=== PATIENT | female | born 1990 | race Caucasian/White ===

== ENCOUNTER 2018-07-27 16:52 | Inpatient (IN) | payer OTHER, MEDICAID ==
[2018-07-27] MEDS ORDERED: LACTATED RINGER'S 1,000 ML IV (17:27)
[2018-07-27] MEDS ORDERED: OXYTOCIN 30 UNITS/LR 500 ML IV (17:30)
[2018-07-27] MEDS ORDERED: BUTORPHANOL 2 MG INJ IV ×2 (17:30)
[2018-07-27] MEDS ORDERED: CARBOPROST 250 MCG INJ IM (17:30)
[2018-07-27] MEDS ORDERED: METHYLERGONOVINE 0.2 MG INJ IM (17:30)
[2018-07-27] MEDS ORDERED: MISOPROSTOL 200 MCG TAB PR (17:30)
[2018-07-27] MEDS ORDERED: AMPICILLIN 2 GM/NS (PMX) 100 ML IV (17:30)
[2018-07-27 18:13] LABS: ADD MAN DIFF? NO
[2018-07-27 18:17] LABS: BASOPHILS % 0.3 % (0.0-2.0); EOSINOPHILS # 0.1 10^3/ul (0.0-0.5); EOSINOPHILS % 0.6 % (0.0-7.0); HEMATOCRIT 35.9 % (37.0-47.0); HEMOGLOBIN 11.9 g/dl (12.0-16.0); LYMPHOCYTES # 1.6 10^3/ul (0.8-2.9); LYMPHOCYTES % 12.1 % (15.0-51.0); MEAN CORPUSCULAR HEMOGLOBIN 27.7 pg (29.0-33.0); MEAN CORPUSCULAR HGB CONC 33.1 g/dl (32.0-37.0); MEAN CORPUSCULAR VOLUME 83.7 fl (82.0-101.0); MEAN PLATELET VOLUME 11.4 fl (7.4-10.4); MONOCYTES % 7.6 % (0.0-11.0); NEUTROPHIL # 10.2 10^3/ul (1.6-7.5); NEUTROPHILS % 78.1 % (39.0-77.0); PLATELET COUNT 215 10^3/UL (140-415); RED BLOOD COUNT 4.29 10^6/ul (4.20-5.40); RED CELL DISTRIBUTION WIDTH 13.7 % (11.5-14.5)
[2018-07-27 18:37] LABS: INR 0.91; PROTIME 12.4 Sec (11.9-14.9)
[2018-07-27 18:38] LABS: PARTIAL THROMBOPLASTIN TIME 29.4 Sec (23.0-35.0)
[2018-07-27] MEDS: OXYTOCIN 30 UNITS/LR 500 ML IV (18:54)
[2018-07-27 19:13] LABS: HEPATITIS B SURFACE ANTIGEN NEGATIVE (NEGATIVE)
[2018-07-27] MEDS: LACTATED RINGER'S 1,000 ML IV ×2 (21:04→22:48)
[2018-07-27] MEDS ORDERED: AMPICILLIN 1 GM/NS (PMX) 50 ML IV (21:30)
[2018-07-27] MEDS ORDERED: NALOXONE (0.4 MG/ML) INJ IV (22:00)
[2018-07-28] MEDS: DEXTROSE 5%-LR 1,000 ML IV (00:42)
[2018-07-28 00:52] LABS: ADD MAN DIFF? NO
[2018-07-28 00:54] LABS: WHITE BLOOD COUNT 19.5 10^3/ul (4.8-10.8)
[2018-07-28 00:54] LABS: BASOPHILS % 0.2 % (0.0-2.0); EOSINOPHILS % 0.1 % (0.0-7.0); HEMATOCRIT 33.6 % (37.0-47.0); HEMOGLOBIN 10.9 g/dl (12.0-16.0); LYMPHOCYTES # 1.3 10^3/ul (0.8-2.9); LYMPHOCYTES % 6.8 % (15.0-51.0); MEAN CORPUSCULAR HEMOGLOBIN 27.5 pg (29.0-33.0); MEAN CORPUSCULAR HGB CONC 32.4 g/dl (32.0-37.0); MEAN CORPUSCULAR VOLUME 84.8 fl (82.0-101.0); MEAN PLATELET VOLUME 11.1 fl (7.4-10.4); MONOCYTES % 5.1 % (0.0-11.0); NEUTROPHIL # 16.9 10^3/ul (1.6-7.5); NEUTROPHILS % 86.7 % (39.0-77.0); PLATELET COUNT 205 10^3/UL (140-415); RED BLOOD COUNT 3.96 10^6/ul (4.20-5.40); RED CELL DISTRIBUTION WIDTH 13.7 % (11.5-14.5)
[2018-07-28 01:09] LABS: ADD UMIC YES; UR ASCORBIC ACID NEGATIVE (NEGATIVE); UR BILIRUBIN (Dip) NEGATIVE (NEGATIVE); UR BLOOD (Dip) 1+ mg/dL (NEGATIVE); UR CLARITY CLEAR (CLEAR); UR COLOR YELLOW (YELLOW); UR GLUCOSE (Dip) NEGATIVE (NEGATIVE); UR KETONES (Dip) NEGATIVE (NEGATIVE); UR LEUKOCYTE ESTERASE (Dip) NEGATIVE Leu/ul (NEGATIVE); UR MUCUS FEW /HPF (NONE SEEN); UR NITRITE (Dip) NEGATIVE (NEGATIVE); UR RBC 7 /HPF (0-5); UR SPECIFIC GRAVITY (Dip) 1.011 (1.003-1.030); UR TOTAL PROTEIN (Dip) NEGATIVE (NEGATIVE); UR UROBILINOGEN (Dip) NEGATIVE (NEGATIVE); UR WBC 1 /HPF (0-5)
[2018-07-28 01:13] LABS: ALANINE AMINOTRANSFERASE < 6 IU/L (13-69); ALBUMIN 3.4 g/dl (3.3-4.9); ALBUMIN/GLOBULIN RATIO 1.09; ALKALINE PHOSPHATASE 152 IU/L (42-121); ANION GAP 6 (5-13); ASPARTATE AMINO TRANSFERASE 17 IU/L (15-46); BILIRUBIN,INDIRECT 0.5 mg/dl (0-1.1); BILIRUBIN,TOTAL 0.5 mg/dl (0.2-1.3); BLOOD UREA NITROGEN 5 mg/dl (7-20); CARBON DIOXIDE 23 mmol/L (21-31); CHLORIDE 104 mmol/L (97-110); CREATININE 0.55 mg/dl (0.44-1.00); Estimated GFR > 60 mL/min (>60); GLUCOSE 109 mg/dl (70-220); POTASSIUM 4.2 mmol/L (3.5-5.1); SODIUM 133 mmol/L (135-144); TOTAL PROTEIN 6.5 g/dl (6.1-8.1); URIC ACID 4.6 mg/dl (3.1-7.9)
[2018-07-28] MEDS: FENTAnyl 2MCG/ML-ROPIV 0.2% 100 ML BAG EPI ×2 (04:36→04:40)
[2018-07-28] MEDS: LIDOCAINE 1% (MPF) 30 ML INJ INJ (06:38)
[2018-07-28] MEDS: OXYTOCIN 30 UNITS/LR 500 ML IV ×2 (07:00→07:06)
[2018-07-28] MEDS: ACETAMINOPHEN 325 MG TAB PO ×3 (09:59→22:27)
[2018-07-28] MEDS: WITCH HAZEL/GLYCERIN PAD PR (09:59)
[2018-07-28] MEDS: BENZOCAINE 20% 56 ML SPRAY TOP (09:59)
[2018-07-28] MEDS ORDERED: MISOPROSTOL 200 MCG TAB PR (10:00)
[2018-07-28] MEDS ORDERED: DIBUCAINE 1% 30 GM OINT TOP (10:00)
[2018-07-28] MEDS ORDERED: OXYTOCIN 30 UNITS/LR 500 ML IV (10:00)
[2018-07-28] MEDS ORDERED: CARBOPROST 250 MCG INJ IM (10:00)
[2018-07-28] MEDS ORDERED: HYDROCODONE/APAP (5/325) TAB PO (10:00)
[2018-07-28] MEDS ORDERED: METHYLERGONOVINE 0.2 MG INJ IM (10:00)
[2018-07-28] MEDS ORDERED: IBUPROFEN 600 MG TAB PO (12:00)
[2018-07-28 16:08] LABS: RAPID PLASMA REAGIN NONREACTIVE (NR)
[2018-07-28] MEDS: LACTATED RINGER'S 1,000 ML IV* ×2 (17:31→21:00)
[2018-07-28] MEDS: CEPHALEXIN 500 MG CAP PO (17:39)
[2018-07-28] MEDS: SENNA/DOCUSATE NA (8.6MG/50MG) TAB PO (21:00)
[2018-07-29] MEDS: CEPHALEXIN 500 MG CAP PO ×4 (00:21→17:51)
[2018-07-29] MEDS: LACTATED RINGER'S 1,000 ML IV* ×3 (01:31→17:31)
[2018-07-29] MEDS: ACETAMINOPHEN 325 MG TAB PO ×4 (06:10→17:51)
[2018-07-29] MEDS: SENNA/DOCUSATE NA (8.6MG/50MG) TAB PO ×2 (08:14→21:00)
[2018-07-29 09:15] LABS: ADD MAN DIFF? NO
[2018-07-29 09:18] LABS: WHITE BLOOD COUNT 13.3 10^3/ul (4.8-10.8)
[2018-07-29 09:18] LABS: ABNORMAL IP MESSAGE 1; BASOPHIL # 0.1 10^3/ul (0.0-0.1); BASOPHILS % 0.4 % (0.0-2.0); EOSINOPHILS # 0.1 10^3/ul (0.0-0.5); EOSINOPHILS % 0.8 % (0.0-7.0); HEMATOCRIT 32.6 % (37.0-47.0); HEMOGLOBIN 10.5 g/dl (12.0-16.0); LYMPHOCYTES # 1.6 10^3/ul (0.8-2.9); LYMPHOCYTES % 11.7 % (15.0-51.0); MEAN CORPUSCULAR HEMOGLOBIN 27.6 pg (29.0-33.0); MEAN CORPUSCULAR HGB CONC 32.2 g/dl (32.0-37.0); MEAN CORPUSCULAR VOLUME 85.6 fl (82.0-101.0); MEAN PLATELET VOLUME 11.7 fl (7.4-10.4); MONOCYTE # 1.6 10^3/ul (0.3-0.9); NEUTROPHIL # 9.9 10^3/ul (1.6-7.5); NEUTROPHILS % 74.1 % (39.0-77.0); PLATELET COUNT 173 10^3/UL (140-415); RED BLOOD COUNT 3.81 10^6/ul (4.20-5.40); RED CELL DISTRIBUTION WIDTH 14.1 % (11.5-14.5)
[2018-07-29 09:24] LABS: POSITIVE DIFF @See below
[2018-07-29] MEDS: WITCH HAZEL/GLYCERIN PAD PR (11:39)
[2018-07-29] MEDS: BENZOCAINE 20% 56 ML SPRAY TOP (11:39)
[2018-07-30] MEDS: ACETAMINOPHEN 325 MG TAB PO ×3 (00:12→11:32)
[2018-07-30] MEDS: CEPHALEXIN 500 MG CAP PO ×3 (00:12→11:31)
[2018-07-30] MEDS: LACTATED RINGER'S 1,000 ML IV* ×2 (01:31→09:31)
[2018-07-30] MEDS: SENNA/DOCUSATE NA (8.6MG/50MG) TAB PO (08:34)
[2018-07-30] MEDS: DIPHTH/TET/ACEL PERTUSS (ADULT) 0.5 ML VIAL IM* (09:00)
== END 2018-07-30 12:50 | disposition home or self-care (01) | DRG 807 ==
LOC: OBT 16:52 → L-D 16:52 → OBT 16:56 → L-D 17:08 → PP1 07-28 08:50
PROVIDERS: Obstetrics & Gynecology
PROC: 10E0XZZ Delivery of Products of Conception, External Approach (ICD-10-PCS; principal; 2018-07-28)
PROC: 0KQM0ZZ Repair Perineum Muscle, Open Approach (ICD-10-PCS; 2018-07-28)
DX: O77.0 Labor and delivery complicated by meconium in amniotic fluid (principal); Z37.0 Single live birth; O70.1 Second degree perineal laceration during delivery; Z3A.40 40 weeks gestation of pregnancy
CPT/HCPCS: 62322; 80053; 81001; 84560; 85025; 85610; 85730; 86592; 86850; 86900; 86901; 87340; 99464